=== PATIENT | female | born 1995 | race American Indian/Alaskan Native ===

== ENCOUNTER 2019-01-03 11:24 | Observation (INO) | payer MEDICAID, OTHER ==
[2019-01-03] MEDS ORDERED: LACTATED RINGERS 500 ML IV ONE (12:01)
[2019-01-03 12:38] LABS: Bacteria,Urine 1+ /HPF (Negative); Bilirubin,Urine NEG (Negative); Blood,Urine SM (Negative); Color,Urine Yellow (Yellow); Mucus,Urine 1+ /HPF; Urobilinogen,Urine < 2.0 mg/dL (<2.0)
[2019-01-03 12:49] LABS: Amphetamine Screen,Urine PRESUMPTIVE NEGATIVE; Benzodiazepines Screen,Urine PRESUMPTIVE NEGATIVE; Cannabinoid Screen,Urine PRESUMPTIVE NEGATIVE; Cocaine Screen,Urine PRESUMPTIVE NEGATIVE; Methadone Screen,Urine PRESUMPTIVE NEGATIVE; Opiate Screen,Urine PRESUMPTIVE NEGATIVE
--- NOTE | 2019-01-03 14:29 | History and Physical Report ---
History of Present Illness Date of examination: 01/03/19 Date of admission: 01/03/19 Chief complaint: SIUP at 22 weeks gestation with pyelonephritis History of present illness: Patient is a 23 year old , LMP?, EDC 05/10/19 at 21 weeks and 6 days gestation who presented to triage complaining of having mid-lower abdominal pain and mid-back pain since last night and burning on urination for a week. She denies any fever, fluid leakage or bleeding. She reports good movement. She receives [facility]NC at [facility] and she is in the process of transferring her care to [facility]. She says that she has had labs and sonogram done at [facility]. Past History Past Surgical History: no surgical history Social history: no significant social history - Obstetrical History Expected Date of Delivery: 05/10/19 Actual Gestation: 21 Week(s) 6 Day(s) : 4 Para: 2 Number of Living Children: 2 Medications and Allergies Allergies Allergy/AdvReac Type Severity Reaction Status Date / Time Latex, Natural Rubber AdvReac Severe Swelling Verified 01/03/19 12:01 - Vital Signs Vital signs: Vital Signs Temp Pulse Resp BP 98.5 F 76 20 101/55 01/03/19 11:58 01/03/19 11:58 01/03/19 11:58 01/03/19 11:58 Temp Pulse Resp BP Pulse Ox 98.5 F 76 20 101/55 01/03/19 11:58 01/03/19 11:58 01/03/19 11:58 01/03/19 11:58 - Physical Exam Cardiovascular: Normal S1, Normal S2 Lungs: Positive: Clear to auscultation Vulva: both: normal Cervix: Positive: other (Closed, long, post.) Adnexa: both: normal Extremities: Positive: other (++ bilateral flank TN.) Deep Tendon Reflex Grade: Normal +2 - Obstetrical Uterine Contraction Monitor Mode: External Cervical Dilatation: 0 Cervical Effacement Percentage: 0 Uterine Contraction Pattern: Absent Results Abnormal lab results 01/03/19 Range/Units 12:00 Urine WBC (Auto) 7.0 H (0.0-6.0) /HPF All other labs normal. Assessment and Plan - Patient Problems (1) 21 weeks gestation of Current Visit: Yes Status: Acute (2) Pyelonephritis affecting Current Visit: Yes Status: Acute Plan to address problem: Admit to anterpartum. IV hydration. IV antibtiotics. Labs. Urine culture. OB sonogram
[2019-01-03] MEDS ORDERED: COLACE PO PRN (14:31)
[2019-01-03] MEDS ORDERED: ZOFRAN IV PRN (14:31)
[2019-01-03] MEDS ORDERED: SENOKOT S PO PRN (14:31)
[2019-01-03] MEDS ORDERED: MILK OF MAGNESIA PO PRN (14:31)
[2019-01-03] MEDS ORDERED: TYLENOL PO PRN (14:31)
[2019-01-03] MEDS ORDERED: AMBIEN PO PRN (14:31)
[2019-01-03] MEDS ORDERED: ALUM-MAG HYDROX-SIMETH 200-200-20MG/5ML PO PRN (14:31)
[2019-01-03] MEDS ORDERED: PRENATAL VITAMIN PO SCH (15:00)
[2019-01-03 16:39] LABS: Hematocrit 33.9 % (30.3-42.9); Hemoglobin 10.9 gm/dl (10.1-14.3); Mean Corpuscular HGB Conc 32 % (30-34); Mean Corpuscular Volume 90 fl (79-97); Platelet Count 358 K/mm3 (140-440); Red Blood Count 3.77 M/mm3 (3.65-5.03); Red Cell Distribution Width 13.3 % (13.2-15.2)
[2019-01-03 16:54] LABS: Alanine Aminotransferase 11 units/L (7-56); Albumin 3.4 g/dL (3.9-5); BUN/Creatinine Ratio 20; Blood Urea Nitrogen 6 mg/dL (7-17); Calcium 8.5 mg/dL (8.4-10.2); Hemolysis Index 5
[2019-01-03] MEDS: LACTATED RINGERS 1,000 ML IV SCH (17:45)
[2019-01-03 17:53] LABS: Anisocytosis 1+; Band Neutrophils # (Manual) 0.1 K/mm3; Basophils % (Manual) 0 % (0.0-1.8); Platelet Estimate Consistent w Auto; Total Cells Counted 100
[2019-01-03] MEDS: ANCEF/NS 1 GM/50 ML 1 GM/50 ML BAG IV SCH ×2 (18:04→23:40)
--- NOTE | 2019-01-03 20:46 | Ultrasound Report ---
FINAL REPORT EXAM: US OB FOLLOW UP HISTORY: well being TECHNIQUE: Ultrasound obstetrical transabdominal PRIORS: None. FINDINGS: Single live intrauterine gestation present Position is cephalic cardiac activity is present with heart rate of 145 beats per minute Cervical length 4.5 centimeters Placenta is grade 0 and anterior biometric measurements were obtained Biparietal diameter 21 weeks 6 days Head circumference 21 weeks 6 days Abdominal circumference 22 weeks 1 day Femur length 21 weeks 6 days Based on today's exam composite gestational age is 22 weeks 0 days with estimated date of delivery Ju 2019 Estimated weight today is 467 grams IMPRESSION: Single live intrauterine gestation estimated at 22 weeks 0 days
--- NOTE | 2019-01-03 20:48 | Ultrasound Report ---
FINAL REPORT EXAM: US RENAL BILAT HISTORY: r/o pyelonephritis TECHNIQUE: Retroperitoneal ultrasound PRIORS: None. FINDINGS: The right kidney measures 11.6 x 4.9 x 6.4 centimeters The left kidney measures 10.9 x 6.1 x 5.5 centimeters Minimal prominence of the renal collecting systems bilaterally without evidence for gross hydronephro sis.. Renal parenchyma is within normal limits. Images of the urinary bladder demonstrate no focal ab normality. IMPRESSION: Minimal prominence of the renal collecting systems. No gross hydronephrosis identified.
[2019-01-04] MEDS: ANCEF/NS 1 GM/50 ML 1 GM/50 ML BAG IV SCH ×2 (06:41→14:35)
--- NOTE | 2019-01-04 10:10 | Progress Note ---
Assessment and Plan - Patient Problems (1) 21 weeks gestation of Current Visit: Yes Status: Acute (2) Pyelonephritis affecting Current Visit: Yes Status: Acute Plan to address problem: Continue IV hydration and IV antibtiotics. Urine culture pending. CBC today. If WBC mormalizes, will discharge patient home. Subjective - Subjective Date of service: 01/04/19 Principal diagnosis: SIUP at 22 weeks with pyelonephritis. Interval history: Patient is a 23 year old , LMP?, EDC 05/10/19 at 22 weeks gestation who was admitted yesterday mid-lower abdominal pain, mid-back pain and burning on urination for a week. She denied any fever, fluid leakage or bleeding. She reports good movement. Vitals were stable. Exam showed B/L CVA TN. Labs showed WBC of 14.4. Sonogram showed a viable SIUP at 22 weeks. She was treated for pyelonephritis with IV ancef. This AM, she feels better and denies any pain or contractions. Exam today: no CVA tenderness. Objective - Vital Signs Vital Signs: Vital Signs - 12hr 01/03/19 01/03/19 01/04/19 23:39 23:41 04:31 Temperature 98.8 F 98.1 F Pulse Rate 80 Respiratory 16 18 Rate Blood Pressure 97/56 - Exam Cardiovascular: Normal S1, Normal S2 Lungs: Clear to auscultation Vulva: both: normal Uterine Contraction Pattern: Absent Deep Tendon Reflex Grade: Normal +2 - Labs Labs: Abnormal Labs 01/03/19 01/03/19 01/03/19 12:00 15:49 15:49 WBC 14.4 H Seg Neuts % (Manual) 79.0 H Seg Neutrophils # Man 11.4 H Sodium 135 L Carbon Dioxide 21 L BUN 6 L Creatinine 0.3 L Glucose 57 L Albumin 3.4 L Urine WBC (Auto) 7.0 H Laboratory Results - last 24 hr 01/03/19 01/03/19 01/03/19 12:00 12:00 15:49 WBC 14.4 H RBC 3.77 Hgb 10.9 Hct 33.9 MCV 90 MCH 29 MCHC 32 RDW 13.3 Plt Count 358 Add Manual Diff Complete Total Counted 100 Seg Neuts % (Manual) 79.0 H Band Neutrophils % 1.0 Lymphocytes % (Manual) 16.0 Reactive Lymphs % (Man) 0 Monocytes % (Manual) 3.0 Eosinophils % (Manual) 1.0 Basophils % (Manual) 0 Metamyelocytes % 0 Myelocytes % 0 Promyelocytes % 0 Blast Cells % 0 Nucleated RBC % Not Reportable Seg Neutrophils # Man 11.4 H Band Neutrophils # 0.1 Lymphocytes # (Manual) 2.3 Abs React Lymphs (Man) 0.0 Monocytes # (Manual) 0.4 Eosinophils # (Manual) 0.1 Basophils # (Manual) 0.0 Metamyelocytes # 0.0 Myelocytes # 0.0 Promyelocytes # 0.0 Blast Cells # 0.0 WBC Morphology Not Reportable Hypersegmented Neuts Not Reportable Hyposegmented Neuts Not Reportable Hypogranular Neuts Not Reportable Smudge Cells Not Reportable Toxic Granulation Not Reportable Toxic Vacuolation Not Reportable Dohle Bodies Not Reportable Pelger-Huet Anomaly Not Reportable Susan Rods Not Reportable Platelet Estimate Consistent w auto Clumped Platelets Not Reportable Plt Clumps, EDTA Not Reportable Large Platelets Not Reportable Giant Platelets Not Reportable Platelet Satelliting Not Reportable Plt Morphology Comment Not Reportable RBC Morphology Not Reportable Dimorphic RBCs Not Reportable Polychromasia Not Reportable Hypochromasia Not Reportable Poikilocytosis Not Reportable Anisocytosis 1+ Microcytosis Not Reportable Macrocytosis Not Reportable Spherocytes Not Reportable Pappenheimer Bodies Not Reportable Sickle Cells Not Reportable Target Cells Not Reportable Tear Drop Cells Not Reportable Ovalocytes Not Reportable Helmet Cells Not Reportable [place] Bodies Not Reportable Hurricane Rings Not Reportable Jim Cells Not Reportable Bite Cells Not Reportable Crenated Cell Not Reportable Elliptocytes Not Reportable Acanthocytes (Spur) Not Reportable Rouleaux Not Reportable Hemoglobin C Crystals Not Reportable Schistocytes Not Reportable Malaria parasites Not Reportable Jose Bodies Not Reportable Hem Pathologist Commnt No Sodium Potassium Chloride Carbon Dioxide Anion Gap BUN Creatinine Estimated GFR BUN/Creatinine Ratio Glucose Calcium Total Bilirubin AST ALT Alkaline Phosphatase Total Protein Albumin Albumin/Globulin Ratio Urine Color Yellow Urine Turbidity Clear Urine pH 5.0 Ur Specific Mamou 1.026 Urine Protein 30 mg/dl Urine Glucose (UA) Neg Urine Ketones Tr Urine Blood Sm Urine Nitrite Neg Urine Bilirubin Neg Urine Urobilinogen < 2.0 Ur Leukocyte Esterase Mod Urine WBC (Auto) 7.0 H Urine RBC (Auto) 13.0 U Epithel Cells (Auto) 4.0 Urine Bacteria (Auto) 1+ Urine Mucus 1+ Urine Opiates Screen Presumptive negative Urine Methadone Screen Presumptive negative Ur Barbiturates Screen Presumptive negative Ur Phencyclidine Scrn Presumptive negative Ur Amphetamines Screen Presumptive negative U Benzodiazepines Scrn Presumptive negative Urine Cocaine Screen Presumptive negative U Marijuana (THC) Screen Presumptive negative Drugs of Abuse Note Disclamer Blood Type Antibody Screen 01/03/19 01/03/19 15:49 15:49 WBC RBC Hgb Hct MCV MCH MCHC RDW Plt Count Add Manual Diff Total Counted Seg Neuts % (Manual) Band Neutrophils % Lymphocytes % (Manual) Reactive Lymphs % (Man) Monocytes % (Manual) Eosinophils % (Manual) Basophils % (Manual) Metamyelocytes % Myelocytes % Promyelocytes % Blast Cells % Nucleated RBC % Seg Neutrophils # Man Band Neutrophils # Lymphocytes # (Manual) Abs React Lymphs (Man) Monocytes # (Manual) Eosinophils # (Manual) Basophils # (Manual) Metamyelocytes # Myelocytes # Promyelocytes # Blast Cells # WBC Morphology Hypersegmented Neuts Hyposegmented Neuts Hypogranular Neuts Smudge Cells Toxic Granulation Toxic Vacuolation Dohle Bodies Pelger-Huet Anomaly Susan Rods Platelet Estimate Clumped Platelets Plt Clumps, EDTA Large Platelets Giant Platelets Platelet Satelliting Plt Morphology Comment RBC Morphology Dimorphic RBCs Polychromasia Hypochromasia Poikilocytosis Anisocytosis Microcytosis Macrocytosis Spherocytes Pappenheimer Bodies Sickle Cells Target Cells Tear Drop Cells Ovalocytes Helmet Cells Gerber[place] Bodies Hurricane Rings [place] Cells Bite Cells Crenated Cell Elliptocytes Acanthocytes (Spur) Rouleaux Hemoglobin C Crystals Schistocytes Malaria parasites Jose Bodies Hem Pathologist Commnt Sodium 135 L Potassium 3.6 Chloride 100.6 Carbon Dioxide 21 L Anion Gap 17 BUN 6 L Creatinine 0.3 L Estimated GFR > 60 BUN/Creatinine Ratio 20 Glucose 57 L Calcium 8.5 Total Bilirubin 0.20 AST 14 ALT 11 Alkaline Phosphatase 55 Total Protein 7.1 Albumin 3.4 L Albumin/Globulin Ratio 0.9 Urine Color Urine Turbidity Urine pH Ur Specific Mamou Urine Protein Urine Glucose (UA) Urine Ketones Urine Blood Urine Nitrite Urine Bilirubin Urine Urobilinogen Ur Leukocyte Esterase Urine WBC (Auto) Urine RBC (Auto) U Epithel Cells (Auto) Urine Bacteria (Auto) Urine Mucus Urine Opiates Screen Urine Methadone Screen Ur Barbiturates Screen Ur Phencyclidine Scrn Ur Amphetamines Screen U Benzodiazepines Scrn Urine Cocaine Screen U Marijuana (THC) Screen Drugs of Abuse Note Blood Type B POSITIVE Antibody Screen Negative - Results US- obstetric: report reviewed
[2019-01-04 11:41] LABS: Basophils % (Auto) 0.2 % (0.0-1.8); Eosinophils # (Auto) 0.1 K/mm3 (0.0-0.4); Eosinophils % (Auto) 1.2 % (0.0-4.3); Hematocrit 30.1 % (30.3-42.9); Hemoglobin 10.3 gm/dl (10.1-14.3); Lymphocytes # (Auto) 1.4 K/mm3 (1.2-5.4); Lymphocytes % (Auto) 13.8 % (13.4-35.0); Mean Corpuscular HGB Conc 34 % (30-34); Mean Corpuscular Volume 89 fl (79-97); Monocytes # (Auto) 0.7 K/mm3 (0.0-0.8); Monocytes % (Auto) 6.9 % (0.0-7.3); Platelet Count 325 K/mm3 (140-440); Red Blood Count 3.37 M/mm3 (3.65-5.03); Red Cell Distribution Width 13.1 % (13.2-15.2)
[2019-01-04] MEDS: LACTATED RINGERS 1,000 ML IV SCH (14:40)
--- NOTE | 2019-01-04 15:33 | Discharge Summary ---
Providers - Providers Date of Admission: 01/03/19 14:54 Date of discharge: 01/04/19 Attending physician: LISA MANCERA MD Primary care physician: LISA MANCERA MD Hospitalization Reason for admission: other (pyelonephritis) Procedure: other (IV fluid, IV antibiotics) Hospital course: Patient was admitted at 21 weeks and 6 days gestation for pyelonephritis. She was treated with IV fluid, IV ancef. WBC was 14.4. Urine culture is still pending. Patient is feeling better today. Repeat WBC today is 10. She is afebrile. Exam: no CVA tenderness. Will discharge home. patient has appt with [facility] next week for first PNC. Condition at discharge: Stable Disposition: [id number] TO HOME OR SELFCARE - Discharge Diagnoses (1) 21 weeks gestation of Status: Acute (2) Pyelonephritis affecting Status: Acute Plan - Provider Discharge Summary Additional instructions: [] Smoking cessation referral if applicable(refer to patient education folder for contact #) [] Refer to [facility] Booklet Call your doctor immediately for: * Fever > 100.5 * Heavy vaginal bleeding ( >1 pad per hour) * Severe persistent headache * Shortness of breath * Reddened, hot, painful area to leg or breast * Drainage or odor from incision. * Keep incision clean and dry at all times and follow doctor's instructions regarding bathing/showering - Follow up plan Follow up: LISA MANCERA MD [Primary Care Provider] - 7 Days Forms: [facility] Discharge Summary
[2019-01-04 15:37] VITALS: BP 121/68
== END 2019-01-04 17:40 | disposition home or self-care (01) ==
LOC: TRG 11:24 → LD 14:54 → INTOOBSV 14:54
PROVIDERS: ADMIT Obstetrics & Gynecology; ATTEND Obstetrics & Gynecology
DX: O23.42 Unspecified infection of urinary tract in pregnancy, second trimester (principal); N12 Tubulo-interstitial nephritis, not specified as acute or chronic; O26.892 Other specified pregnancy related conditions, second trimester; R10.30 Lower abdominal pain, unspecified; Z3A.21 21 weeks gestation of pregnancy
CPT/HCPCS: 36415; 59025; 76770; 76816; 80053; 80307; 81001; 85007; 85025; 86850; 86900; 86901; 96365; 96366; G0378; J0690; J7120

== ENCOUNTER 2019-03-07 01:03 | Outpatient (CLI) | payer OTHER ==
[2019-03-07 01:22] VITALS: BP 112/58
[2019-03-07] MEDS ORDERED: LACTATED RINGERS 500 ML IV ONE (01:23)
[2019-03-07 02:17] LABS: Bilirubin,Urine NEG (Negative); Blood,Urine MOD (Negative); Color,Urine Yellow (Yellow); Mucus,Urine FEW /HPF
== END 2019-03-07 02:54 | disposition home or self-care (01) ==
LOC: TRG 01:03
PROVIDERS: ATTEND Obstetrics & Gynecology
DX: O47.03 False labor before 37 completed weeks of gestation, third trimester (principal); O26.893 Other specified pregnancy related conditions, third trimester; R10.2 Pelvic and perineal pain; Z3A.30 30 weeks gestation of pregnancy
CPT/HCPCS: 59025; 81001; J7120

== ENCOUNTER 2019-04-28 16:30 | Inpatient (IN) | payer OTHER ==
[2019-04-28] MEDS ORDERED: XYLOCAINE 2% INFILTRATI ONE (17:19)
[2019-04-28] MEDS ORDERED: BRETHINE SUB-Q PRN (17:19)
--- NOTE | 2019-04-28 17:21 | History and Physical Report ---
History of Present Illness Date of examination: 04/28/19 Date of admission: 04/28/2019 Chief complaint: Contractions History of present illness: 24 year old presented to L&D complaining of contractions. Patient denies leaking of fluid or vaginal bleeding. Patient reports active movement. Patient received care at [facility] and records are available. LMP 08/03/2018. EDC 05/10/2019 (based on LMP and confirmed by 24 week US). significant for the following: transfer-in to [facility] at 22 6/7 weeks from [facility]; 8 cm right breast mass (which patient states has gotten smaller and for which pt. had a breast US but did not see breast specialist as she was advised to do); LSIL pap with suspicion for high grade lesion; UTI (treated and ANGEL negative); trichomonas (treated and ANGEL negative); chlamydia (treated but no test of cure on chart). labs are as follows: B+, antibody screen negative, pap LSIL, rubella immune, RPR nonreactive, HIV negative, hepatitis B surface antigen negative, hemoglobin electrophoresis normal, gonorrhea negative/negative, chlamydia negative/positive, GBS negative, diabetes screen 108. Past History Past Medical History: other (8 cm right breast mass (pt. did not keep her scheduled appt. with breast specialist/surgeon)) Past Surgical History: no surgical history [facility] History: abnormal PAP smear, chlamydia (no ANGEL on chart), trichomonas (ANGEL negative for trichomonas). denies: gonorrhea, hepatitis B, herpes, HIV, syphilis Family/Genetic History: none Social history: lives with family, full code. denies: smoking, alcohol abuse, prescription drug abuse, IV drug use - Obstetrical History Expected Date of Delivery: 05/10/19 Actual Gestation: 38 Week(s) 2 Day(s) : 4 Para: 2 Hx # Term Pregnancies: 2 Number of Pregnancies: 0 Spontaneous Abortions: 1 Induced : 0 Number of Living Children: 2 Medications and Allergies Allergies Allergy/AdvReac Type Severity Reaction Status Date / Time mushroom Allergy Swelling Verified 03/07/19 01:22 mustard Allergy Swelling Verified 03/07/19 01:22 peanut Allergy Swelling Verified 03/07/19 01:22 Latex, Natural Rubber AdvReac Severe Swelling Verified 01/03/19 12:01 Home Medications Medication Instructions Recorded Confirmed Last Taken Type Ferrous Sulfate [Feosol 325 MG tab] 1 tab PO BID 04/28/19 04/28/19 04/25/19 History Vit-Fe Fumar-FA [ 1 tab PO QDAY 04/28/19 04/28/19 04/27/19 History Vitamin] Review of Systems All systems: negative (contractions) - Vital Signs Vital signs: Vital Signs Pulse BP 112 H 120/67 04/28/19 16:42 04/28/19 16:42 Temp Pulse Resp BP Pulse Ox 112 H 120/67 04/28/19 16:42 04/28/19 16:42 - Physical Exam Cardiovascular: Regular rate, Normal S1, Normal S2 Lungs: Positive: Clear to auscultation Abdomen: Positive: normal appearance, soft. Negative: distention, tenderness, guarding, rigidity Genitourinary (Female): Positive: normal external genitalia, normal perenium (no lesions seen on careful exam with bright light upon admission). Negative: perineal/vulvar lesions Vagina: Positive: normal moisture Uterus: Positive: enlarged (size appropriate for dates) Anus/Rectum: Positive: normal perianal skin Extremities: Positive: normal. Negative: tenderness, edema - Obstetrical FHR: category 1 Uterine Contraction Monitor Mode: External Cervical Dilatation: 5 Cervical Effacement Percentage: 30 station: -3 Uterine Contraction Pattern: Irregular Results Result Diagrams: 04/28/19 19:15 All other labs normal. Assessment and Plan A: at 38 weeks, 2 days gestation. Labor. History of chlamydia which was treated but unknown if it was cured. P: Admit. Zithromax 1 gram po. Electronic monitoring.
[2019-04-28] MEDS ORDERED: LACTATED RINGERS 1,000 ML IV SCH (18:00)
[2019-04-28 19:57] LABS: Hematocrit 31.6 % (30.3-42.9); Hemoglobin 10.5 gm/dl (10.1-14.3); Mean Corpuscular HGB Conc 33 % (30-34); Mean Corpuscular Volume 84 fl (79-97); Platelet Count 268 K/mm3 (140-440); Red Blood Count 3.77 M/mm3 (3.65-5.03); Red Cell Distribution Width 16.3 % (13.2-15.2)
[2019-04-28] MEDS ORDERED: ZITHROMAX PO ONE (20:00)
--- NOTE | 2019-04-29 07:46 | Progress Note ---
Assessment and Plan A: Multiparous patient at 38 weeks, 3 days gestation in early labor. GBS negative. P: Patient has been re-treated for chlamydia with Zithromax on admission yesterday. Consulted with Dr. Jo re: this patient; Dr. Jo recommends labor augmentation today at noon if regular contractions have not resumed. Discussed this plan with patient and patient states she is in agreement with this plan. Subjective - Subjective Date of service: 04/29/19 Principal diagnosis: at 38 weeks, 3 days gestation Interval history: Patient had contractions every 5 minutes overnight; contractions have now spaced. Pt. denies vaginal bleeding or leaking of fluid. Pt. reports active movement. Patient reports: movement normal, contractions, no new complaints, no loss of fluid, no vaginal bleeding Objective - Vital Signs Vital Signs: Vital Signs - 12hr 04/28/19 04/28/19 04/28/19 19:42 19:47 19:52 Temperature Pulse Rate 84 79 82 Blood Pressure O2 Sat by Pulse 98 97 97 Oximetry 04/28/19 04/28/19 04/28/19 19:57 20:02 20:07 Temperature Pulse Rate 86 85 76 Blood Pressure O2 Sat by Pulse 97 96 97 Oximetry 04/28/19 04/28/19 04/28/19 20:12 20:17 20:25 Temperature 98.7 F Pulse Rate 77 76 Blood Pressure O2 Sat by Pulse 97 95 Oximetry 04/28/19 04/28/19 04/28/19 20:30 20:31 20:35 Temperature Pulse Rate 73 70 80 Blood Pressure 101/60 O2 Sat by Pulse 98 98 Oximetry 04/28/19 04/28/19 04/28/19 20:40 20:48 20:53 Temperature Pulse Rate 82 74 74 Blood Pressure O2 Sat by Pulse 97 98 98 Oximetry 04/28/19 04/28/19 04/28/19 20:58 21:03 21:08 Temperature Pulse Rate 80 78 78 Blood Pressure O2 Sat by Pulse 98 98 97 Oximetry 04/28/19 04/28/19 04/28/19 21:13 21:18 21:23 Temperature Pulse Rate 79 69 88 Blood Pressure O2 Sat by Pulse 97 99 99 Oximetry 04/28/19 04/28/19 04/28/19 21:28 21:33 21:38 Temperature Pulse Rate 65 82 76 Blood Pressure O2 Sat by Pulse 99 98 99 Oximetry 04/28/19 04/28/19 04/28/19 21:45 21:50 21:55 Temperature Pulse Rate 76 76 81 Blood Pressure O2 Sat by Pulse 100 100 98 Oximetry 04/28/19 04/28/19 04/28/19 22:00 22:05 22:10 Temperature Pulse Rate 71 74 67 Blood Pressure O2 Sat by Pulse 98 99 99 Oximetry 04/28/19 04/28/19 04/28/19 22:18 22:23 22:28 Temperature Pulse Rate 82 74 68 Blood Pressure O2 Sat by Pulse 100 98 99 Oximetry 04/28/19 04/28/19 04/28/19 22:33 22:38 22:51 Temperature Pulse Rate 75 72 70 Blood Pressure O2 Sat by Pulse 98 98 98 Oximetry 04/28/19 04/28/19 04/28/19 22:56 23:01 23:06 Temperature Pulse Rate 61 71 76 Blood Pressure O2 Sat by Pulse 96 98 98 Oximetry 04/28/19 04/28/19 04/28/19 23:18 23:23 23:28 Temperature Pulse Rate 69 71 66 Blood Pressure O2 Sat by Pulse 100 100 99 Oximetry 04/28/19 04/28/19 04/28/19 23:33 23:38 23:43 Temperature Pulse Rate 65 69 73 Blood Pressure O2 Sat by Pulse 99 99 97 Oximetry 04/28/19 04/28/19 04/28/19 23:48 23:53 23:58 Temperature Pulse Rate 73 70 72 Blood Pressure O2 Sat by Pulse 98 99 99 Oximetry 04/29/19 04/29/19 04/29/19 00:03 00:08 00:13 Temperature Pulse Rate 63 73 73 Blood Pressure O2 Sat by Pulse 97 99 98 Oximetry 04/29/19 04/29/19 04/29/19 00:18 00:23 00:28 Temperature Pulse Rate 79 67 79 Blood Pressure O2 Sat by Pulse 98 99 99 Oximetry 04/29/19 04/29/19 00:46 02:00 Temperature 98.1 F Pulse Rate 88 Blood Pressure O2 Sat by Pulse 99 Oximetry - Exam Cardiovascular: Regular rate, Normal S1, Normal S2, No murmurs Lungs: Clear to auscultation Abdomen: Present: normal appearance, soft. Absent: distention, tenderness, guarding, rigidity Uterus: Present: normal, fundal height above umbilicus. Absent: tenderness FHR: category 1 Uterine Contraction Monitor Mode: External Cervical Dilatation: 5 Cervical Effacement Percentage: 40 station: -3 Uterine Contraction Pattern: Irregular Uterine Contraction Intensity: Mild Extremities: normal - Labs Labs: Abnormal Labs 04/28/19 19:15 RDW 16.3 H Laboratory Results - last 24 hr 04/28/19 04/28/19 19:15 19:15 WBC 9.3 RBC 3.77 Hgb 10.5 Hct 31.6 MCV 84 MCH 28 MCHC 33 RDW 16.3 H Plt Count 268 Blood Type B POSITIVE Antibody Screen Negative
[2019-04-29] MEDS ORDERED: PITOCin/NS 30 UNIT/500ML 30 UNITS/500 ML BAG IV SCH (12:00)
--- NOTE | 2019-04-29 18:52 | Event Note ---
Date: 04/29/19 SVE /-/BBOW.
[2019-04-29] MEDS ORDERED: DULCOLAX PR PRN (20:46)
[2019-04-29] MEDS ORDERED: TUCKS PAD TP PRN (20:46)
[2019-04-29] MEDS ORDERED: BENADRYL PO PRN (20:46)
[2019-04-29] MEDS ORDERED: LANSINOH TP PRN (20:46)
[2019-04-29] MEDS ORDERED: MILK OF MAGNESIA PO PRN (20:46)
--- NOTE | 2019-04-29 20:52 | Procedure Note ---
OB Delivery Note - Delivery Date of Delivery: 04/29/19 Surgeon: GILBERT LEWIS Estimated blood loss: 200cc - Vaginal Delivery presentation: vertex Delivery position: OA Intrapartum events: none Delivery induction: none Delivery augmentation: rupture of membranes, pitocin Delivery monitor: external FHT, external uterine Route of delivery: Delivery placenta: spontaneous Delivery cord: nuchal cord, 3 umbilical vessels, other (cord around left leg) Episiotomy: none Delivery laceration: none Anesthesia: none Delivery comments: Spontaneous vaginal delivery at 20:30 of liveborn female infant weighing 6 lb. 3 oz. over intact perineum with apgars of 8/9. Nuchal cord times 1, manually reduced; cord around baby's left leg. Baby placed skin to skin on mom's chest immediately after . Bulb suctioned. Spontaneous cry and respirations. 3 vessel cord double clamped and cut after cessation of pulsation. Spontaneous delivery of intact placenta and membranes by fletcher mechanism. EBL 200 cc. Pitocin to IV fluids after delivery of placenta. Fundus firm and midline. No lacerations noted. Vaginal sweep negative. Sponge count correct. Mother and baby stable in birthing room.
[2019-04-29] MEDS ORDERED: SODIUM CHLORIDE FLUSH SYRINGE 10 ML IV NR (21:00)
[2019-04-29] MEDS: PITOCin/NS 20 UNIT/1000ML DRIP 20 UNITS/1,000 ML BAG IV SCH ×2 (21:57→22:20)
[2019-04-30] MEDS: COLACE PO SCH ×3 (00:10→21:50)
[2019-04-30] MEDS: IBUPROFEN PO SCH ×4 (00:10→23:50)
[2019-04-30] MEDS: NORCO 5/325 PO PRN ×2 (09:54→17:07)
--- NOTE | 2019-04-30 10:06 | Progress Note ---
Assessment and Plan - Patient Problems (1) (normal spontaneous vaginal delivery) Current Visit: Yes Status: Acute Plan to address problem: Continue routine PP orders Anticipate d/c home in 24 hours Subjective - Subjective Date of service: 04/30/19 Principal diagnosis: Interval history: See admission H & P, OB delivery summary Patient reports: appetite normal, voiding normally, pain well controlled (with Motrin), flatus, bowel movement, ambulating normally : doing well, bottle feeding (and breasfeeding) Objective - Vital Signs Latest vital signs: Vital Signs Temp Pulse Resp BP BP Pulse Ox 04/30/19 09:54 18 04/30/19 09:33 98.2 F 66 20 111/65 04/30/19 06:39 18 04/30/19 06:02 18 04/30/19 01:10 18 04/30/19 00:10 18 04/29/19 22:45 98.4 F 61 18 112/69 04/29/19 21:41 64 112/58 04/29/19 21:12 75 123/77 04/29/19 20:54 76 99 04/29/19 20:49 49 L 94 04/29/19 20:45 98.4 F 75 18 123/77 100 04/29/19 20:44 85 99 04/29/19 19:41 73 125/72 04/29/19 19:27 73 100 04/29/19 19:25 76 84 04/29/19 19:22 76 100 04/29/19 19:17 98.6 F 74 18 127/65 100 04/29/19 19:12 76 127/65 04/29/19 19:05 87 100 04/29/19 19:00 65 100 04/29/19 18:55 58 L 99 04/29/19 18:50 64 100 04/29/19 18:45 65 99 04/29/19 18:42 65 114/58 04/29/19 18:40 67 99 04/29/19 18:35 68 95 04/29/19 18:25 63 97 04/29/19 18:20 64 98 04/29/19 18:15 67 98 04/29/19 18:12 67 109/65 04/29/19 18:10 65 98 04/29/19 18:05 65 99 04/29/19 18:00 64 98 04/29/19 17:55 63 99 04/29/19 17:51 66 109/64 04/29/19 17:50 71 100 04/29/19 17:39 74 99 04/29/19 17:34 70 98 04/29/19 17:29 64 99 04/29/19 17:24 67 98 04/29/19 17:19 65 97 04/29/19 17:14 66 99 04/29/19 17:11 75 112/67 04/29/19 17:09 73 99 04/29/19 17:04 80 100 04/29/19 16:55 72 99 04/29/19 16:50 62 98 04/29/19 16:45 68 98 04/29/19 16:42 67 116/67 04/29/19 16:40 71 98 04/29/19 16:35 64 99 04/29/19 16:30 68 99 04/29/19 16:25 73 99 04/29/19 16:14 64 96 04/29/19 16:11 57 L 108/66 04/29/19 16:09 66 97 04/29/19 16:04 66 97 04/29/19 15:59 64 98 04/29/19 15:54 61 98 04/29/19 15:49 64 98 04/29/19 15:44 64 98 04/29/19 15:41 63 99/61 04/29/19 15:39 68 99 04/29/19 15:34 73 100 04/29/19 15:29 70 99 04/29/19 15:24 78 98 04/29/19 15:19 70 99 04/29/19 15:14 79 99 04/29/19 15:11 70 109/65 04/29/19 15:09 70 98 04/29/19 15:04 74 98 04/29/19 14:59 69 98 04/29/19 14:54 69 98 04/29/19 14:49 75 99 04/29/19 14:44 89 100 04/29/19 14:41 66 105/68 04/29/19 14:36 68 99 04/29/19 14:31 83 97 04/29/19 14:26 66 98 04/29/19 14:21 65 98 04/29/19 14:16 68 99 04/29/19 14:11 64 99/66 99 04/29/19 13:10 63 102/55 Intake and Output 04/29/19 04/30/19 04/30/19 23:59 07:59 15:59 Intake Total 70.883 600 240 Output Total 1300 600 Balance 70.883 -700 -360 Intake: IV 70.883 PITOCin/NS 20 UNIT/1000ML 47.917 DRIP 20 units In 1,000 ml @ 125 mls/hr IV DIRECT JOHNY Rx#:[id number] PITOCin/NS 30 UNIT/500ML 22.966 30 units In 500 ml @ Per Protocol IV TITR JOHNY Rx#: [id number] Oral 240 240 Intake, Free Water 360 Output: Urine 1300 600 Void 1300 600 Other: Total, Intake Amount 240 240 Total, Output Amount 400 600 # Bowel Movements 1 Estimated Blood Loss 200 - Exam Breasts: Present: , other (mass in rt breast above nipple, non- tender) Cardiovascular: Present: Regular rate Lungs: Present: Normal air movement Abdomen: Present: soft, normal bowel sounds Uterus: Present: firm, fundal height below umbilicus (U-2) Extremities: Present: normal Deep Tendon Reflex Grade: Normal +2
[2019-04-30 10:15] LABS: Hemoglobin 9.1 gm/dl (10.1-14.3)
[2019-05-01] MEDS: IBUPROFEN PO SCH (05:41)
--- NOTE | 2019-05-01 09:21 | Progress Note ---
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 Patient reports: appetite normal, voiding normally, pain well controlled, flatus, bowel movement, ambulating normally, no dizzy ambulation : doing well, other (breast and bottle feeding) Objective - Vital Signs Latest vital signs: Vital Signs Temp Pulse Resp BP BP Pulse Ox 05/01/19 07:47 98.1 F 69 20 111/69 96 05/01/19 05:41 18 04/30/19 23:50 18 04/30/19 23:30 98.2 F 71 20 120/70 98 04/30/19 17:11 18 04/30/19 17:07 18 04/30/19 16:10 98.7 F 70 20 98/52 04/30/19 09:54 18 04/30/19 09:33 98.2 F 66 20 111/65 Intake and Output 04/30/19 05/01/19 05/01/19 23:59 07:59 15:59 Intake Total 600 120 Balance 600 120 Intake: Oral 600 120 Other: Total, Intake Amount 240 120 # Voids Void 1 1 - Exam Cardiovascular: Present: Regular rate Lungs: Present: Clear to auscultation Abdomen: Present: normal appearance, soft Vulva: both: normal Uterus: Present: normal, firm, fundal height below umbilicus Extremities: Present: normal Comments: scant lochia - Labs Labs: Abnormal lab results 04/30/19 Range/Units 09:48 Hgb 9.1 L (10.1-14.3) gm/dl Hct 28.0 L (30.3-42.9) %
--- NOTE | 2019-05-01 09:46 | Discharge Summary ---
Providers - Providers Date of Admission: 04/28/19 16:31 Date of discharge: 05/01/19 Attending physician: BENITEZ RAYMUNDO MD Primary care physician: BENITEZ RAYMUNDO MD Hospitalization Reason for admission: active labor, IUP at term Delivery: Episiotomy: none Laceration: none Other procedures: none complications: none Discharge diagnosis: IUP at term delivered baby: female Hospital course: Uncomplicated Condition at discharge: Stable Disposition: DC-01 TO HOME OR SELFCARE - Discharge Diagnoses (1) Status post normal vaginal delivery Status: Acute (2) Anemia due to blood loss, acute Status: Acute Comment: Asymptomatic Continue iron therapy Plan - Discharge Medications Prescriptions: Ferrous Sulfate [Feosol 325 MG tab] 1 tab PO BID #30 tablet - Provider Discharge Summary Activity: routine, no sex for 6 weeks, no heavy lifting 4 weeks, no strenuous exercise Diet: routine Instructions: routine Additional instructions: [] Smoking cessation referral if applicable(refer to patient education folder for contact #) [] Refer to [facility] Booklet Call your doctor immediately for: * Fever > 100.5 * Heavy vaginal bleeding ( >1 pad per hour) * Severe persistent headache * Shortness of breath * Reddened, hot, painful area to leg or breast * Drainage or odor from incision. * Keep incision clean and dry at all times and follow doctor's instructions regarding bathing/showering - Follow up plan Follow up: BENITEZ RAYMUNDO MD [Primary Care Provider] - 6 Weeks (Follow up at [facility] as needed or in 6 weeks for exam)
[2019-05-01] MEDS: COLACE PO SCH (10:01)
[2019-05-01 13:20] VITALS: BP 98/54
== END 2019-05-01 14:20 | disposition home or self-care (01) | DRG 774 ==
LOC: TRG 16:30 → LD 16:31 → TRG 19:55 → OB 04-29 22:17
PROVIDERS: ADMIT Obstetrics & Gynecology; ATTEND Obstetrics & Gynecology
PROC: 10E0XZZ Delivery of Products of Conception, External Approach (ICD-10-PCS; principal; 2019-04-29)
DX: O69.81X0 Labor and delivery complicated by cord around neck, without compression, not applicable or unspecified (principal); O98.82 Other maternal infectious and parasitic diseases complicating childbirth; O69.89X0 Labor and delivery complicated by other cord complications, not applicable or unspecified; O90.81 Anemia of the puerperium; D62 Acute posthemorrhagic anemia; Z3A.38 38 weeks gestation of pregnancy; Z37.0 Single live birth
CPT/HCPCS: 36415; 85014; 85018; 85027; 86592; 86850; 86900; 86901; G0378; A6250; J2590; J7120

== ENCOUNTER 2019-10-09 09:43 | Outpatient (CLI) | payer OTHER | END 2019-10-09 09:44 | disposition home or self-care (01) | LOC: LABHHL 09:43 | PROVIDERS: ATTEND Surgery | DX: N60.01 Solitary cyst of right breast (principal) | CPT/HCPCS: 88112 ==

== ENCOUNTER 2019-10-31 06:21 | Day surgery (SDC) | payer OTHER ==
[~2019-10-31 06:21] MED LIST: BUPIVACAINE/PF (0.25%) 2.5 MG/ML 30 ML VIAL INFILTRATI ONE; LIDOCAINE (1%) 10 MG/1 ML VIAL 20 ML MDV INFILTRATI ONE; SODIUM CHLORIDE 0.9% IRR 1,500 ML BOTTLE IR ONE; ceFAZolin/Water 2 GM/20 ML 2 GM/20 ML SYRINGE IV NR
[2019-10-31] MEDS ORDERED: LACTATED RINGERS 1,000 ML ONE ×2 (07:19→09:44)
--- NOTE | 2019-10-31 07:21 | Anesthesia Day of Surgery ---
Anesthesia Day of Surgery - Day of Surgery Patient Examined: Yes Patient H&P Reviewed: Yes Patient is NPO: Yes
--- NOTE | 2019-10-31 07:21 | Anesthesia Consultation ---
Anesthesia Consult and Med Hx Date of service: 10/31/19 - Airway Anesthetic Teeth Evaluation: Good ROM Head & Neck: Adequate Mental/Hyoid Distance: Adequate Mallampati Class: Class II Intubation Access Assessment: Good - Pulmonary Exam CTA: Yes - Cardiac Exam Cardiac Exam: RRR - Pre-Operative Health Status ASA Pre-Surgery Classification: ASA2 Proposed Anesthetic Plan: General - Pulmonary Hx Smoking: Yes (SINCE AGE 13; 1CIGAR DAILY) Hx Asthma: No COPD: No Hx Pneumonia: No - Cardiovascular System Hx Hypertension: No - Central Nervous System Hx Seizures: No Hx Psychiatric Problems: No - Endocrine Hx Renal Disease: No Hx End Stage Renal Disease: No Hx Hypothyroidism: No Hx Hyperthyroidism: No - Hematic Hx Anemia: Yes (HGB 9.1 04/28/19) Hx Sickle Cell Disease: No - Other Systems Hx Alcohol Use: No Hx Substance Use: No Hx Cancer: No
[2019-10-31] MEDS ORDERED: ONDANSETRON 4 MG/2 ML INJ IV PRN (07:22)
[2019-10-31] MEDS ORDERED: LIDOCAINE (1%) 10 MG/1 ML VIAL 20 ML MDV ONE (07:34)
[2019-10-31] MEDS ORDERED: BUPIVACAINE/PF (0.5%) 5 MG/1 ML 30 ML VIAL INFILTRATI ONE ×2 (07:34→09:16)
[2019-10-31] MEDS ORDERED: fentaNYL 100 MCG/2 ML INJ ONE ×2 (07:43→09:43)
[2019-10-31] MEDS ORDERED: LIDOCAINE MPF (2%) 20 MG/1 ML VIAL 5 ML ONE (07:44)
[2019-10-31] MEDS ORDERED: PROPOFOL 200 MG/20 ML VIAL IV ONE (07:44)
[2019-10-31] MEDS ORDERED: MIDAZOLAM 2 MG/2 ML INJ IV NR (08:00)
[2019-10-31] MEDS ORDERED: CELECOXIB 200 MG CAP PO NR (08:00)
[2019-10-31] MEDS ORDERED: GABAPENTIN 300 MG CAP PO NR (08:00)
[2019-10-31] MEDS ORDERED: LACTATED RINGERS 1,000 ML IV SCH (08:00)
[2019-10-31] MEDS ORDERED: ONDANSETRON 4 MG/2 ML INJ ONE (08:21)
[2019-10-31] MEDS ORDERED: dexAMETHasone 20 MG/5 ML VIAL ONE (08:21)
[2019-10-31] MEDS ORDERED: SODIUM CHLORIDE 0.9% IRR 1,500 ML BOTTLE IR ONE (09:14)
[2019-10-31] MEDS ORDERED: BUPIVACAINE/PF (0.25%) 2.5 MG/ML 30 ML VIAL INFILTRATI ONE (09:16)
[2019-10-31] MEDS ORDERED: LIDOCAINE (1%) 10 MG/1 ML VIAL 20 ML MDV INFILTRATI ONE (09:16)
--- NOTE | 2019-10-31 10:16 | Operative Report ---
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 Findings: Right breast adenoma at 12 o'clock position SA with excisional biopsy performed Complications: None Drains: None Estimated blood loss: 50-75 cc Disposition: PACU in good condition Indication for operative procedure: This is a 24-year-old lady with newly diagnosed right breast adenoma at the 12:00 position SA. Recent right breast mass biopsied with findings of a lactating adenoma. Recomendations are for excisional biopsy given increase in size and current size over 4 cm. Patient later developed a milk fistula as well given mass adherent to skin. Patient wanted to proceed with right breast adenoma excisional biopsy, she wished to proceed with the above procedure. The patient was procedure in detail: The patient was taken to the operating room and was laid supine. General anesthesia was administered. The right breast mass was palpable at the 12 o'clock position SA, mobile and soft with drainage of milke from the nipple and skin milk fistula location of 2 areas around the 1:00 position. Area was noted on ultrasound as well with surrounding milk present. The right breast was prepped and draped in the normal sterile operative fashion. Timeout was performed. A 6:00 breast incision was made around the NAC with a 15 blade knife with dissection taken down to the subcutaneous tissues. Inflammed tissue was noted adherent to the mass, posterior breast tissue of the nipple and underlying skin. The mass was encountered and was dissected free from the skin and breast tissues with the aid of the Bovie cautery. The specimen was sent to pathology. Hemostasis was then obtained using the Bovie cautery. Breast adenoma was highly vascular. Breast cavity was anesthesized with 1% lidocaine and quarter percent marcaine. The breast cavity was irrigated and suctioned. The deep breast tissues were approximated and closed using an interrupted 3-0 Vicryl and skin brought together and closed using a running 4-0 Monocryl followed by dermabond. The skin at 1:00 position from milk fistula was closed as well with interrupted 4-0 Chromic suture. She tolerated surgery very well and was awakened from anesthesia without any complication and transported to PACU in good condition.
--- NOTE | 2019-10-31 10:23 | Short Stay Summary ---
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) Swelling Home Medications Medication Instructions Recorded Confirmed Last Taken Type HYDROcodone/APAP 5-325 [Coolidge 1 each PO Q6HR PRN #12 tablet 10/31/19 Unknown Rx 5/325] cephALEXin [Keflex] 500 mg PO Q12HR #14 cap 10/31/19 Unknown Rx Active Medications Hydromorphone HCl (Dilaudid) 0.5 mg IV Q10MIN PRN PRN Reason: Pain , Severe (7-10) Stop: 10/31/19 23:00 Cefazolin Sodium (Ancef/Sterile Water 2 Gm/20 Ml) 2 gm in 20 mls @ 80 mls/hr IV PREOP NR; Protocol Stop: 10/31/19 23:00 Lactated Ringer's (Lactated Ringers) 1,000 mls @ 100 mls/hr IV DIRECT JOHNY Last Admin: 10/31/19 07:30 Dose: 100 mls/hr Documented by: Midazolam HCl (Versed) 2 mg IV PREOP NR Stop: 10/31/19 23:59 Last Admin: 10/31/19 07:50 Dose: 2 mg Documented by: Ondansetron HCl (Zofran) 4 mg IV ONCE PRN PRN Reason: Nausea And Vomiting Stop: 10/31/19 13:00 - Brief post op/procedure progress note Date of procedure: 10/31/19 Pre-op diagnosis: Right breast adenoma Post-op diagnosis: same Procedure: Right breast adenoma excisional biopsy Anesthesia: GETA Findings: Right breast adenoma 12:00 SA Surgeon: HUAN DURAN Estimated blood loss: 50-100ml Pathology: list (right breast adenoma) Specimen disposition: to lab Condition: stable - Disposition Condition at discharge: Good Disposition: DC-01 TO HOME OR SELFCARE Short Stay Discharge Plan Activity: other (no heavy lifting) Diet: regular Wound: keep clean and dry (may shower in 48 hours; no baths or pools, wear breast binder) Follow up with: PRIMARY CARE,MD [Primary Care Provider] - 7 Days HUAN DURAN MD [Staff Physician] - 7 Days Prescriptions: cephALEXin [Keflex] 500 mg PO Q12HR #14 cap HYDROcodone/APAP 5-325 [Coolidge 5/325] 1 each PO Q6HR PRN #12 tablet PRN Reason: Pain
[2019-10-31] MEDS: HYDROmorphone 1 MG/1 ML INJ IV PRN ×2 (10:30→10:51)
--- NOTE | 2019-10-31 11:15 | Post Anesthesia Evaluation ---
- Post Anesthesia Evaluation Patient Participated: Yes Airway Patent: Yes Stable Respiratory Function: Yes Nausea/Vomiting: No Temp > 96.8F: Yes Pain Manageable: Yes Adequeate Hydration: Yes Anesthesia Complications: No
[2019-10-31 11:32] VITALS: BP 118/72
== END 2019-10-31 11:36 | disposition home or self-care (01) ==
LOC: OR 06:21
PROVIDERS: ATTEND Surgery
DX: D24.1 Benign neoplasm of right breast (principal); F17.210 Nicotine dependence, cigarettes, uncomplicated; Z91.040 Latex allergy status; Z91.010 Allergy to peanuts; Z88.8 Allergy status to other drugs, medicaments and biological substances; Z98.890 Other specified postprocedural states; Z82.49 Family history of ischemic heart disease and other diseases of the circulatory system; Z86.2 Personal history of diseases of the blood and blood-forming organs and certain disorders involving the immune mechanism
CPT/HCPCS: 19120; 88305; J0690; J1100; J1170; J2250; J2405; J2704; J3010; J7120; 88307